=== PATIENT | male | born 1965 | race Caucasian/White ===

== ENCOUNTER 2018-08-31 13:45 | Outpatient (CLI) | payer OTHER ==
--- NOTE | 2018-08-31 14:57 | RAD ---
LEFT KNEE FOUR VIEWS: History: Left knee pain. FINDINGS/IMPRESSION: No fracture, dislocation, or bony destruction is seen. Minimal degenerative changes are noted. POS: [facility]
--- NOTE | 2018-08-31 15:05 | RAD ---
FOUR VIEWS RIGHT KNEE: Date: 08-31-18 History: Right knee pain. FINDINGS: There is a small osseous fragment seen just superior to the lateral tibial spine and this osseous den sity is corticated and appears to represent a small remote avulsion injury involving the lateral tibi al spine. No acute fracture or dislocation is seen. There is mild tricompartment osteophytosis. A sma ll joint effusion is seen in the suprapatellar location. IMPRESSION: 1. Small joint effusion without evidence of an acute osseous abnormality. 2. Findings suggestive of a remote avulsion injury involving the lateral tibial spine. 3. Osteoarthritis. POS: [facility]
--- NOTE | 2018-08-31 15:07 | RAD ---
TWO VIEWS RIGHT HIP: Date: 08-31-18 History: Right hip pain. Comparison: 03-27-18 FINDINGS: Again noted is increased density involving the superior and medial aspect of the right femoral head w hich is overall similar to the prior study and is again worrisome for osteonecrosis without collapse. No acute fracture or dislocation is seen involving the right hip. There are osteophytes seen with mi ld narrowing of the superolateral joint space of the right hip suggesting osteoarthritis. IMPRESSION: 1. 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 2. Mild degenerative changes right hip similar to prior study. POS: [facility]
--- NOTE | 2018-08-31 15:37 | RAD ---
RADIOGRAPH LEFT ELBOW 4 VIEWS: 08/31/18 HISTORY: 53-year-old male with left elbow pain. COMPARISON: 03/27/18. FINDINGS: There is an approximately 15 x 5 mm well corticated ossific fragment abutting the dorsal superficial surface of the olecranon process. There is an irregularly marginated separation between the olecranon process and this fragment by a gap of approximately 1 mm. The fragment appears slightly larger now than on the previous radiograph, but that could be due to slight projectional differences. There is n o evidence of displacement of the joint capsule. The joint spaces are maintained without erosions or large osteophytes. No osteolytic or osteoblastic lesion, permeative lesion, or periostitis, is visual ized. No major interval change overall. IMPRESSION: 1. A moderate sized enthesophyte at the triceps tendon insertion site, with old, minimally disp laced fracture fragments base from the olecranon process. 2. No acute findings. POS: [facility]
== END 2018-08-31 13:46 | disposition home or self-care (01) ==
LOC: RAD-FRANK 13:45
PROVIDERS: ATTEND Internal Medicine
DX: M25.561 Pain in right knee (principal); M25.562 Pain in left knee; M25.522 Pain in left elbow; M25.551 Pain in right hip; M77.9 Enthesopathy, unspecified; M16.11 Unilateral primary osteoarthritis, right hip; M25.461 Effusion, right knee; M17.0 Bilateral primary osteoarthritis of knee; Z87.81 Personal history of (healed) traumatic fracture

== ENCOUNTER 2018-10-31 09:24 | Outpatient (CLI) | payer OTHER ==
[2018-10-31 14:04] LABS: #Eosinphils 0.1 thou/uL (0.0-0.7); #Lymphocytes 1.9 thou/uL (1.20-3.40); #Monocytes 0.5 thou/uL (0.11-0.59); #Neutrophils 4.4 thou/uL (1.40-6.50); %Basophils 0.7 % (0.0-1.0); %Eosinophils 1.7 % (0.0-10.0); %Lymphocytes 26.9 % (21.0-51.0); %Monocytes 7.7 % (0.0-10.0); Hemoglobin 19.1 g/dL (14.0-18.0); Mean Corpuscular HGB CONC 33.7 g/dL (32.0-36.0); Mean Corpuscular Hemoglobin 32.6 pg (27.0-31.0); Mean Corpuscular Volume 96.7 fL (78.0-98.0); Mean Platelet Volume 8.4 fL (7.4-10.4); Platelet Count 174 thou/uL (130-400); RBC Distribution Width 12.3 % (11.5-14.5); Red Blood Cell (RBC) Count 5.85 mill/uL (4.70-6.10)
[2018-10-31 14:24] LABS: Anion Gap 16 mmol/L (10-20); BUN (Urea Nitrogen) 12 mg/dL (8.4-25.7); Calc. Creatinine Clearance 0 mL/min (70-130); Calcium 9.6 mg/dL (7.8-10.44); Carbon Dioxide 21 mmol/L (22-29); Chloride 99 mmol/L (98-107); Estimated GFR-MDRD 87; Glucose 158 mg/dL (70-105); Potassium 4.6 mmol/L (3.5-5.1); Sodium 131 mmol/L (136-145)
== END 2018-10-31 09:25 | disposition home or self-care (01) ==
LOC: LABBT 09:24
PROVIDERS: ATTEND Orthopaedic Surgery
DX: Z01.818 Encounter for other preprocedural examination (principal); M25.729 Osteophyte, unspecified elbow
CPT/HCPCS: 80048; 85025; 93005; 93010

== ENCOUNTER 2018-11-01 07:49 | Day surgery (SDC) | payer OTHER ==
--- NOTE | 2018-10-31 13:12 | HP ---
HISTORY OF PRESENT ILLNESS: The patient is a 53-year-old male with a 2-year history of progressive pain in his left elbow over the tip of the olecranon. There is no specific injury, but he has done manual labor in the past. He has a painful prominence, which was worse with activities and also leaning on his arm or elbow. He has had persistent symptoms of anti-inflammatory medications. PAST HISTORY: The patient is otherwise in good health. He has a history of hypertension and also degenerative arthritis of his right hip, which is currently being managed conservatively. CURRENT MEDICATIONS: Include; 1. Cialis. 2. Lisinopril. 3. Hydrochlorothiazide. 4. Flexeril. ALLERGIES: HE IS ALLERGIC TO PENICILLIN, WHICH CAUSES ANAPHYLAXIS. FAMILY HISTORY: Otherwise unremarkable. SOCIAL HISTORY: Otherwise unremarkable. REVIEW OF SYSTEMS: Otherwise unremarkable. PHYSICAL EXAMINATION: GENERAL: Reveals a healthy male. HEENT: Unremarkable. NECK: Supple. CHEST: Clear. HEART: Regular rate and rhythm. ABDOMEN: Soft, nontender. RECTAL: Deferred. GENITAL: Deferred. EXTREMITIES: Pertinent findings are related to the left elbow. There is prominence of the tip of the olecranon and localized tenderness. There is full range of motion. There is no crepitus or instability. NEUROVASCULAR: Intact. IMAGING DATA: X-rays of the left elbow reveal a large osteophyte on the tip of the olecranon. IMPRESSION: Painful osteophyte of the left olecranon process. PLAN: Surgical excision of the bone spur. The nature of the surgery, length, recovery, and potential complications such as infection, loss of motion, triceps injury, and need for additional treatment, and repeat surgery have been discussed in detail. Job ID: [id number]
[2018-10-31 13:48] VITALS: BMI 32.4
[2018-11-01] MEDS ORDERED: Fentanyl 100 MCG/2 ML VIAL ONE ×2 (10:07→11:57)
[2018-11-01] MEDS ORDERED: Midazolam HCl 2 mg/2 ml Vial ONE (10:07)
[2018-11-01] MEDS ORDERED: Bupivacaine HCl 0.5%/Epinephrine 1:200,000/PF 30 ml Vial ONE (10:13)
[2018-11-01] MEDS ORDERED: Clindamycin/D5W 900 mg/50 ml Premix Bag ONE (10:24)
[2018-11-01] MEDS ORDERED: Rocuronium Bromide 10 MG/ML (10ML VIAL) ONE (15:13)
[2018-11-01] MEDS ORDERED: Glycopyrrolate 0.2 MG/ML 5 ML SYRINGE ONE (15:13)
[2018-11-01] MEDS ORDERED: Dexamethasone 20 MG/5 ML VIAL ONE (15:13)
[2018-11-01] MEDS ORDERED: PROPOFOL 200 MG/20 ML VIAL ONE (15:13)
[2018-11-01] MEDS ORDERED: ePHEDrine 50 MG/ML VIAL ONE (15:13)
[2018-11-01] MEDS ORDERED: Lidocaine 1% PF 5 ML VIAL ONE (15:13)
[2018-11-01] MEDS ORDERED: Ondansetron PF 4 MG/2 ML Vial ONE (15:13)
[2018-11-01] MEDS ORDERED: PHENYLEPHRINE-NS 100 MCG/ML 10 ML SYRINGE ONE (15:13)
--- NOTE | 2018-11-01 15:13 | OP ---
DATE OF PROCEDURE: 11/01/2018 ANESTHESIA: General. PREOPERATIVE DIAGNOSIS: Large osteophyte, left olecranon. POSTOPERATIVE DIAGNOSIS: Large osteophyte, left olecranon. PROCEDURE: Removal of large osteophyte, left olecranon. OPERATIVE FINDINGS: There was a large osteophyte on the tip of the olecranon, measuring at least 1.5 x 1 cm. I could not tell this is a fracture of an osteophyte or heterotopic bone, but there was a synchondrosis over the proximal ulna. He did require splitting longitudinally part of the triceps tendon, but most of the tendon was intact. DESCRIPTION OF PROCEDURE: After satisfactory anesthesia was induced in supine position, the patient was placed in a lateral decubitus position. This position held with a mclaughlin bag. The patient's left arm was then prepped and draped in routine sterile fashion and his left arm placed over a padded bolster. The left arm was elevated and exsanguinated with an Esmarch bandage and the tourniquet inflated to 250 mmHg. A longitudinal incision was made over the olecranon process, carried down through the subcutaneous tissues. Bleeding points controlled with Bovie cautery. There was moderate bursitis over the tip of the olecranon from the large prominence. The triceps insertion was longitudinally split and reflected off the tip of the ulna and the tip of the fragment and then the fragment was removed in its entirety. The remaining bed was smoothed with a rasp. It appeared to be totally excised. The wound was irrigated and then the subcutaneous tissues were infiltrated with 30 mL of 0.5% Marcaine with epinephrine. The triceps was closed with interrupted #1 Vicryl. Subcutaneous tissue was closed with interrupted 2-0 Vicryl. The skin was closed with interrupted 3-0 nylon. A sterile bulky compressive dressing was applied. The tourniquet was deflated after 23 minutes. The hand promptly pinked up. The patient was then placed in the supine position and he was immobilized in a long-arm plaster splint and sling. He was then awakened and taken to the recovery room in stable condition. There were no apparent intraoperative complications. The estimated blood loss was negligible. The patient will be discharged home in satisfactory condition and started on ice and elevation and given written cast care instructions. He was given a prescription for [place] 10 for pain 40 tablets. He will be rechecked in my office in 7 to 10 days or sooner if there are any problems prior to that time. Job ID: [id number]
--- NOTE | 2018-11-01 15:23 | RAD ---
PORTABLE CHEST: Date: 11-01-18 Provided Clinical History: Respiratory distress. FINDINGS: No comparisons. Cardiac and mediastinal silhouette is within normal limits. Lungs appear clear. No pl eural fluid or pneumothorax apparent. IMPRESSION: No evidence for an acute cardiopulmonary process. POS: [facility]
== END 2018-11-01 15:47 | disposition home or self-care (01) ==
LOC: SDC 07:49
PROVIDERS: ATTEND Orthopaedic Surgery
PROC: 0PBL0ZZ Excision of Left Ulna, Open Approach (ICD-10-PCS; principal; 2018-11-01)
DX: M25.722 Osteophyte, left elbow (principal); M70.22 Olecranon bursitis, left elbow; M16.11 Unilateral primary osteoarthritis, right hip; I10 Essential (primary) hypertension; Z79.899 Other long term (current) drug therapy; Z88.0 Allergy status to penicillin
CPT/HCPCS: 71045; 94660; J0670; J1100; J2001; J2250; J2405; J2704; J3010; J3490; J7620